=== PATIENT | female | born 1995 | race African-American/Black ===

== ENCOUNTER 2016-04-15 16:56 | Emergency (ER) | payer MEDICAID ==
[2016-04-15 17:09] VITALS: BP 104/73
--- NOTE | 2016-04-15 17:28 | ER Document Report ---
ED Medical Screen (RME) - General Stated Complaint: CUT FOOT Time seen by provider: 17:29 Mode of Arrival: Wheelchair Information source: Patient TRAVEL OUTSIDE OF THE [place] IN LAST 30 DAYS: No - HPI Patient complains to provider of: CUT RIGHT FOOT Onset: Yesterday Onset/Duration: Sudden Context: STEPPED ON GLASS BOTTLE LAST NIGHT. STATES PULLED GLASS OUT IN ONE PIECE Quality of pain: Throbbing Severity: Moderate Pain Level: 3 Associated Symptoms: None Exacerbated by: Walking Relieved by: Remaining still Similar symptoms previously: No Recently seen / treated by doctor: No - Related Data Smoking: Cigarettes Frequency of alcohol use: None Drug Abuse: None Allergies/Adverse Reactions: shrimp Allergy (Verified 04/15/16 17:29) Past Medical History - Immunizations Hx Diphtheria, Pertussis, Tetanus Vaccination: Yes Physical Exam - Vital signs Vitals: Temp Pulse Resp BP Pulse Ox 98.4 F 103 H 16 104/73 100 04/15/16 17:07 04/15/16 17:07 04/15/16 17:07 04/15/16 17:07 04/15/16 17:07 Course - Vital Signs Vital signs: Temp Pulse Resp BP Pulse Ox 98.4 F 103 H 16 104/73 100 04/15/16 17:07 04/15/16 17:07 04/15/16 17:07 04/15/16 17:07 04/15/16 17:07
[2016-04-15] MEDS ORDERED: OXYCODONE-ACETAMINOPHEN 5-325 MG TABLET PO ONE (17:32)
--- NOTE | 2016-04-15 20:05 | ER Document Report ---
ED General - General Chief Complaint: Laceration Stated Complaint: CUT FOOT Mode of Arrival: Wheelchair Information source: Patient Notes: Patient stepped on a piece of glass barefooted she has a crescent shaped avulsion to the plantar surface of her right foot. TRAVEL OUTSIDE OF THE [place] IN LAST 30 DAYS: No - Related Data Allergies/Adverse Reactions: shrimp Allergy (Verified 04/15/16 17:29) Past Medical History - General Information source: Patient - Social History Smoking Status: Never Smoker Chew tobacco use (# tins/day): No Frequency of alcohol use: None Drug Abuse: None Family History: Reviewed & Not Pertinent Patient has suicidal ideation: No Patient has homicidal ideation: No Renal/ Medical History: Denies: Hx Peritoneal Dialysis - Immunizations Hx Diphtheria, Pertussis, Tetanus Vaccination: Yes Review of Systems - Review of Systems Constitutional: No symptoms reported EENT: No symptoms reported Cardiovascular: No symptoms reported Respiratory: No symptoms reported Gastrointestinal: No symptoms reported Genitourinary: No symptoms reported Female Genitourinary: No symptoms reported Musculoskeletal: No symptoms reported Skin: No symptoms reported Hematologic/Lymphatic: No symptoms reported Neurological/Psychological: No symptoms reported Physical Exam - Vital signs Vitals: Temp Pulse Resp BP Pulse Ox 98.4 F 103 H 16 104/73 100 04/15/16 17:07 04/15/16 17:07 04/15/16 17:07 04/15/16 17:07 04/15/16 17:07 Interpretation: Normal - General General appearance: Appears well, Alert - HEENT Head: Normocephalic, Atraumatic Eyes: Normal Pupils: PERRL - Respiratory Respiratory status: No respiratory distress Chest status: Nontender Breath sounds: Normal Chest palpation: Normal - Cardiovascular Rhythm: Regular Heart sounds: Normal auscultation Murmur: No - Abdominal Inspection: Normal Distension: No distension Bowel sounds: Normal Tenderness: Nontender Organomegaly: No organomegaly - Back Back: Normal, Nontender - Extremities General upper extremity: Normal inspection, Nontender, Normal color, Normal ROM , Normal temperature General lower extremity: Normal inspection, Nontender, Normal color, Normal ROM , Normal temperature, Normal weight bearing. No: Abelardo's sign Ankle: Normal, Other - No tenderness of wound on deep palpation - Neurological Neuro grossly intact: Yes Cognition: Normal Orientation: AAOx4 [place] Coma Scale Eye Opening: Spontaneous Leyda Coma Scale Verbal: Oriented Leyda Coma Scale Motor: Obeys Commands Leyda Coma Scale Total: 15 Speech: Normal Motor strength normal: LUE, RUE, LLE, RLE Sensory: Normal - Psychological Associated symptoms: Normal affect, Normal mood - Skin Skin Temperature: Warm Skin Moisture: Dry Skin Color: Normal Course - Vital Signs Vital signs: Temp Pulse Resp BP Pulse Ox 98.4 F 103 H 16 104/73 100 04/15/16 17:07 04/15/16 17:07 04/15/16 17:07 04/15/16 17:07 04/15/16 17:07 - Diagnostic Test Radiology reviewed: Reports reviewed - Report was reviewed as well as observed by myself no foreign body identified by myself or the radiologist. Discharge - Discharge Clinical Impression: Puncture wound of right foot Disposition: HOME, SELF-CARE Instructions: Tetanus Immunization Given ([facility]), Soap Cleansing ([facility]), Prophylactic Antibiotic ([facility]) Prescriptions: Tramadol HCl [Ultram 50 mg Tablet] 50 mg PO Q6HP PRN #40 tablet PRN Reason: Sulfamethoxazole/Trimethoprim [Septra-Ds 800-160 mg Tablet] 1 tab PO NOW #20 tablet
[2016-04-15] MEDS ORDERED: DIPH/PERTUSS(ACELL)/TETANUS VAC/PF 0.5 ML SYR (>=10YO) IM ONE (20:06)
== END 2016-04-15 20:29 | disposition home or self-care (01) ==
LOC: ER 16:56
DX: J20.9 Acute bronchitis, unspecified (principal); R05 Cough; R11.0 Nausea; R06.2 Wheezing; R06.02 Shortness of breath; R09.89 Other specified symptoms and signs involving the circulatory and respiratory systems; R00.0 Tachycardia, unspecified; F17.200 Nicotine dependence, unspecified, uncomplicated; Z71.6 Tobacco abuse counseling
CPT/HCPCS: 90471; 90715; 99283